=== PATIENT | female | born 1995 | race African-American/Black ===

== ENCOUNTER 2017-04-07 22:15 | Emergency (ER) | payer OTHER ==
--- NOTE | ~2017-04-07 | EKG ---
PATIENT: JAYNE BRADLEY UNIT #: [id number] Ventricular Rate: 84 BPM Atrial Rate: 84 BPM P-R Interval: 122 ms QRS Duration: 84 ms Q-T Interval: 366 ms QTC Calculation(Bezet): 432 ms P [place]: 32 degrees Calculated R [place]: 62 degrees Calculated T [place]: 55 degrees Diagnosis Line: Normal sinus rhythm with sinus arrhythmia Diagnosis Line: Normal ECG Diagnosis Line: No previous ECGs available Diagnosis Line: Confirmed by TREMAINE TREVIÑO MD ([id number]) on Diagnosis Line: 04/09/2017 9:38:15 PM INTERPRETING MD: KAMILA MORILLO
== END 2017-04-08 01:05 | disposition home or self-care (01) ==
LOC: CED 22:15
DX: Z53.21 Procedure and treatment not carried out due to patient leaving prior to being seen by health care provider (principal)
CPT/HCPCS: 84703; 93005